=== PATIENT | female | born 1985 | race Hispanic/Latino ===

== ENCOUNTER 2021-04-30 14:31 | Emergency (ER) | payer SELFPAY ==
--- NOTE | ~2021-04-30 | XR_ITS ---
XR foot RT min 3V DATE: 04/30/2021 15:30 INDICATION: Generalized foot pain for 3 weeks TECHNIQUE: 4 views COMPARISON: None FINDINGS: Os tibiale externum, normal variant. Mild osteoarthritis at the first metatarsophalangeal joint. No fracture, dislocation, periosteal reaction or bone destruction. Slight plantar calcaneal enthesopa thy. 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
--- NOTE | ~2021-04-30 | XR_ITS ---
XR ankle RT min 3V DATE: 04/30/2021 15:30 INDICATION: Ankle and foot pain for 3 weeks TECHNIQUE: 4 views COMPARISON: None FINDINGS: No fracture or dislocation of the ankle or disruption of the ankle mortise. No periosteal r eaction or bone destruction. Os tibiale externum, normal variant. IMPRESSION: No significant abnormality Reviewed, dictated and finalized at location A. IMPRESSION: No significant abnormality
[2021-04-30 14:50] VITALS: BP 144/71; PULSE 68; RESP 16; TEMP 36.4; O2SAT 98
[2021-04-30 15:20] VITALS: BP 144/71; PULSE 68; RESP 18; TEMP 36.7; O2SAT 98
--- NOTE | 2021-04-30 16:07 | ED.GENADULT ---
HPI - General Adult General Chief complaint: Extremity Injury, Lower Stated complaint: pain Time Seen by Provider: 04/30/21 15:22 Source: patient and RN notes reviewed Mode of arrival: ambulatory Limitations: language barrier History of Present Illness HPI narrative: Patient is a 35-year-old female who presents with right ankle injury patient rolled the ankle while walking patient on arrival notes right ankle pain only no other injuries or deformities Related Data Home Medications Medication Instructions Recorded Confirmed levothyroxine 04/30/21 Allergies Allergy/AdvReac Type Severity Reaction Status Date / Time No Known Allergies Allergy Unknown Verified 04/30/21 15:01 Review of Systems Review of Systems: All systems reviewed & are unremarkable except as noted in HPI and below PMFSH Past Medical History Medical History (Updated 04/30/21 @ 16:15 by Travis López PA-C) Hypothyroidism Social History Social History Smoking status: Never smoker Exam Narrative: Exam Narrative: GENERAL: Well-appearing, well-nourished, and in no acute distress. HEAD: Normocephalic, atraumatic. EYES: PERRLA and EOMI. ENT: Nares clear, no rhinorrhea or epistaxis. Mucous membranes moist. EXTREMITIES: Tenderness of the right ankle with no deformities noted SKIN: Warm, dry, no rash. NEURO: No focal deficits. Alert and oriented x3. Cranial nerves II through XII grossly intact. Neurovascularly intact PSYCH: Normal mood and affect. Course Course Emergency Course: Patient in the room no distress evaluated felt appropriate for outpatient reevaluation made aware of case findings Vital Signs Vital signs: Vital Signs Temperature 97.5 F L 04/30/21 14:50 Pulse Rate 68 04/30/21 14:50 Respiratory Rate 16 04/30/21 14:50 Blood Pressure 144/71 H 04/30/21 14:50 Pulse Oximetry 98 04/30/21 14:50 Temperature 98.0 F 04/30/21 15:20 Pulse Rate 68 04/30/21 15:20 Respiratory Rate 18 04/30/21 15:20 Blood Pressure 144/71 H 04/30/21 15:20 Pulse Oximetry 98 04/30/21 15:20 Medical Decision Making MDM Narrative Medical decision making narrative: Patients injury or pain is consistent with musculoskeletal etiology. No signs of neurological or vascular compromise on exam. Compartments and tisues are soft without signs of compartment syndrome. Pain is felt appropriate for further evaluation on an outpatient basis. 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 No weight on the affected leg until able to bear weight without pain. Ice and elevate extremity. Pain medication as needed and directed. Follow up with your doctor for further care in the next 7 days. Prescriptions: No Action levothyroxine RF: 0 Follow-up/Referrals: PHYSICIAN,SLEEPING BAG FILLER [Primary Care Provider] - Padmini Cao DO [Physician] - Stand Alone Forms: Work/School Release IP
== END 2021-04-30 18:29 | disposition home or self-care (01) ==
PROVIDERS: Emergency Provider Emergency Medicine
DX: S93.401A Sprain of unspecified ligament of right ankle, initial encounter (principal); X50.0XXA Overexertion from strenuous movement or load, initial encounter; E03.9 Hypothyroidism, unspecified
CPT/HCPCS: 73610; 73630; 99283

== ENCOUNTER 2021-07-16 21:04 | Emergency (ER) | payer SELFPAY ==
[2021-07-16 21:25] VITALS: BP 140/79; PULSE 84; RESP 18; TEMP 36.4; O2SAT 99
[2021-07-16 22:34] LABS: Basophils Percent Auto 0.4 % (0.2-1.2); Eosinophils Absolute Auto 0.1 K/mm3 (0-0.3); Eosinophils Percent Auto 1.3 % (0-4.4); Hematocrit 41.6 % (37.0-47.0); Hemoglobin 14.1 g/dL (12.0-15.0); Immature Granulocyte Absolute 0.02 K/mm3 (0.00-0.031); Immature Granulocyte Percent A 0.3 % (0-0.5); Lymphocytes Absolute Auto 1.79 K/mm3 (0.9-3.2); Lymphocytes Percent Auto 23.8 % (18.3-44.2); Mean Corpuscular HGB Conc 33.9 g/dl (32-36); Mean Corpuscular Hemoglobin 29.4 pg (26-34); Mean Corpuscular Volume 86.7 fl (80-100); Monocytes Absolute Auto 0.5 K/mm3 (0.1-0.6); Monocytes Percent Auto 6.1 % (2.6-8.5); Neutrophils Absolute Auto 5.1 K/mm3 (1.3-6.7); Neutrophils Percent Auto 68.1 % (45.5-73.1); Platelet Count Result 258 k/mm3 (150-375); Red Cell Distribution Width 13.1 % (11.5-14.5); White Blood Count 7.5 K/mm3 (4.5-10.0)
[2021-07-16 22:42] LABS: Alanine Aminotransferase 28 U/L (4-35); Albumin Level 4.7 g/dL (3.5-5.1); Alkaline Phosphatase 60 U/L (38-126); Anion Gap 9 mmol/L (8-16); Aspartate Amino Transferase 23 U/L (14-36); Bilirubin,Total 0.5 mg/dL (0.2-1.3); Blood Urea Nitrogen 8 mg/dL (7-17); Calcium 9.6 mg/dL (8.4-10.2); Carbon Dioxide 27 mmol/L (22-30); Chloride 104 mmol/L (98-107); Estimated CRCL calculation 162 ml/min; Estimated Glomerular Filt Rate > 60; Glucose 106 mg/dL (65-110); Lipase 95 U/L (23-300); Potassium 3.6 mmol/L (3.4-5.0); Sodium 140 mmol/L (137-145)
--- NOTE | 2021-07-16 23:40 | ED.NAVMDI ---
HPI - Nausea/Vomiting/Diarrhea General Chief complaint: Nausea/Vomiting/Diarrhea Stated complaint: nausea, high blood pressure Time Seen by Provider: 07/16/21 23:14 Source: patient and explosive ordnance technician History of Present Illness HPI Narrative: Patient presents with nausea and vomiting for the past few days and diarrhea over the past 24 hours. She reports she does not have abdominal pain but feels like her abdomen is inflamed. She denies fever she denies known sick contacts denies any recent antibiotics denies any recent camping. She reports she went to the pharmacy noted that her blood pressure was high and the pharmacist referred her to the ER for evaluation. She is also reporting generalized fatigue and feels like her mouth is dry Related Data Home Medications Medication Instructions Recorded Confirmed levothyroxine 04/30/21 Allergies Allergy/AdvReac Type Severity Reaction Status Date / Time No Known Allergies Allergy Unknown Verified 07/17/21 00:03 Review of Systems Review of Systems: CONSTITUTIONAL: Denies fever, chills, or sweats. EYES: Denies visual changes, redness, or discharge. ENT: Denies rhinorrhea, congestion, sore throat, or otalgia. CARDIOVASCULAR: Denies chest pain, palpitations, or edema. RESPIRATORY: Denies cough or dyspnea. GASTROINTESTINAL: Patient reports nausea vomiting and diarrhea GENITOURINARY: Denies dysuria or hematuria. SKIN: Denies rash or itching. MUSCULOSKELETAL: Denies back pain, joint pain, or myalgia. NEUROLOGIC: Denies headache, numbness, dizziness, or focal weakness. PSYCHIATRIC: Denies anxiety or depression. PMFSH Past Medical History Medical History Hypothyroidism Social History Social History Smoking status: Never smoker Exam Narrative: GENERAL: Well-appearing, well-nourished, and in no acute distress. HEAD: Normocephalic, atraumatic. EYES: PERRLA and EOMI. ENT: Nares clear, no rhinorrhea or epistaxis. Mucous membranes moist. NECK: Supple. No masses. No JVD ABDOMEN: Minimal pain with deep palpation in the upper abdomen soft, nondistended EXTREMITIES: Normal range of motion. No edema. SKIN: Warm, dry, no rash. NEURO: No focal deficits. Alert and oriented x3. PSYCH: Normal mood and affect. Course Reevaluation(s) Reevaluation #1: Patient reports feeling much improved patient comfortable with outpatient plan. Date: 07/17/21 Time: 00:34 Vital Signs Vital signs: Vital Signs Temperature 36.4 C L 07/16/21 21:25 Pulse Rate 84 07/16/21 21:25 Respiratory Rate 18 07/16/21 21:25 Blood Pressure 140/79 07/16/21 21:25 Pulse Oximetry 99 07/16/21 21:25 Temperature 36.4 C L 07/16/21 21:25 Pulse Rate 67 07/17/21 01:09 Respiratory Rate 18 07/17/21 01:09 Blood Pressure 116/64 07/17/21 01:09 Pulse Oximetry 98 07/17/21 01:09 MDM - Nausea/Vomiting/Diarrhea MDM Narrative Medical decision making narrative: H&P as above, vss, pt looks clinically well, exam with nonacute abdomen, labs clinically unremarkable, additional labs/img considered, symptomatic relief available as needed, on reevaluation pt continues to looks clinically well. Suspect viral process, dns severe sepsis, severe dehydration, perforation, bowel obstruction, pancreatitis, appendicitis, cholecystitis. plan to tx/monitor as op w/ pcm f/u findings/plan discussed with pt, pt agree/comfortable with plan, return precautions given Lab Data Result diagrams: 07/16/21 22:24 07/16/21 22:24 Labs: Lab Results 07/16/21 07/16/21 07/17/21 Range/Units 22:24 22:24 00:02 WBC 7.5 (4.5-10.0) K/mm3 RBC 4.80 (4.2-5.4) M/mm3 Hgb 14.1 (12.0-15.0) g/dL Hct 41.6 (37.0-47.0) % MCV 86.7 (80-100) fl MCH 29.4 (26-34) pg MCHC 33.9 (32-36) g/dl RDW 13.1 (11.5-14.5) % Plt Count 258 (150-375) k/mm3 MPV 10.0 (7.4-10.4) f
[2021-07-16] MEDS: SODIUM CHLORIDE 0.9% IV 1,000 ML 999 ML IV CONT (23:50)
[2021-07-16] MEDS: ONDANSETRON INJ 4 MG/2 ML VIAL IV PUSH (23:51)
[2021-07-17 00:04] VITALS: BP 115/59; PULSE 66; RESP 16; O2SAT 97
[2021-07-17 00:27] LABS: Add Urine Microscopic? YES; Appearance Urine Clear (Clear); Bacteria Urine Trace /hpf; Bilirubin Urine Negative (Negative); Blood Urine 1+ (Negative); Color Urine Yellow (Yellow); Glucose Urine UA Negative (Negative); Ketones Urine Negative (Negative); Leukocyte Esterase Ur Negative LEU/UL (Negative); Mucus Urine Moderate /lpf; Nitrate Urine Negative (Negative); Protein Urine 1+ mg/dL (Negative); Specific Grav Ur 1.028 (1.001-1.035); Squamous Epithelial Cell Urine Moderate /hpf (Few); Urobilinogen Urine Negative mg/dL (<2.0)
[2021-07-17 01:09] VITALS: BP 116/64; PULSE 67; RESP 18; O2SAT 98
== END 2021-07-17 01:08 | disposition home or self-care (01) ==
PROVIDERS: Emergency Medicine; Emergency Provider Emergency Medicine
DX: R11.2 Nausea with vomiting, unspecified (principal); R19.7 Diarrhea, unspecified; E03.9 Hypothyroidism, unspecified
CPT/HCPCS: 36415; 80053; 81001; 81025; 83690; 85025; 96361; 96374; 99284; J2405; J7030

== ENCOUNTER 2022-11-10 17:00 | Emergency (ER) | payer SELFPAY ==
--- NOTE | ~2022-11-10 | US_ITS ---
EXAMINATION: US soft tissue chest DATE: 11/10/2022 20:07 INDICATION: swelling and tenderness to breast . TECHNIQUE: Grayscale and Doppler ultrasound images of the were obtained. COMPARISON: None. FINDINGS: The region of interest in the anterior chest to the left of midline, partially involving th e medial left breast, was sonographically interrogated revealing a lobular heterogeneous subdermal co llection measuring 1.4 x 0.7 x 4.2 cm, with increased through transmission and no internal vascularit y (apparent color Doppler flow internally in some images was confirmed with the flat bed knitter to be art ifact and not reproducible or apparent during the live exam). Suggestion of increased surrounding vas cular flow. No definite organized surrounding wall detected at this time. IMPRESSION: Subdermal heterogeneous and circumscribed fluid collection, may represent a phlegmon, developing absc ess, or infected/inflamed subdermal cyst. Reviewed, dictated and finalized at location K. AND CENTER ANALYST IMPRESSION: Subdermal heterogeneous and circumscribed fluid collection, may represent a phl egmon, developing abscess, or infected/inflamed subdermal cyst.
[2022-11-10 17:23] VITALS: BP 144/77; PULSE 72; RESP 16; TEMP 36.4; O2SAT 100
[2022-11-10 19:30] LABS: Basophils Percent Auto 0.3 % (0.2-1.2); Eosinophils Absolute Auto 0.2 K/mm3 (0-0.3); Eosinophils Percent Auto 3.1 % (0-4.4); Hematocrit 41.1 % (37.0-47.0); Hemoglobin 14.1 g/dL (12.0-15.0); Immature Granulocyte Absolute 0.03 K/mm3 (0.00-0.031); Immature Granulocyte Percent A 0.5 % (0-0.5); Lymphocytes Absolute Auto 1.86 K/mm3 (0.9-3.2); Lymphocytes Percent Auto 29.2 % (18.3-44.2); Mean Corpuscular HGB Conc 34.3 g/dl (32-36); Mean Corpuscular Hemoglobin 30.4 pg (26-34); Mean Corpuscular Volume 88.6 fl (80-100); Mean Platelet Volume 9.7 fl (7.4-10.4); Monocytes Absolute Auto 0.4 K/mm3 (0.1-0.6); Monocytes Percent Auto 6.3 % (2.6-8.5); Neutrophils Absolute Auto 3.9 K/mm3 (1.3-6.7); Neutrophils Percent Auto 60.6 % (45.5-73.1); Platelet Count Result 251 k/mm3 (150-375); Red Blood Count 4.64 M/mm3 (4.2-5.4); Red Cell Distribution Width 12.6 % (11.5-14.5); White Blood Count 6.4 K/mm3 (4.5-10.0)
[2022-11-10 19:40] LABS: Alanine Aminotransferase 36 U/L (6-35); Albumin Level 4.2 g/dL (3.5-5.1); Alkaline Phosphatase 65 U/L (38-126); Anion Gap 7 mmol/L (8-16); Aspartate Amino Transferase 24 U/L (14-36); Bilirubin,Total 0.4 mg/dL (0.2-1.3); Blood Urea Nitrogen 12 mg/dL (7-17); Calcium 8.9 mg/dL (8.4-10.2); Carbon Dioxide 27 mmol/L (22-30); Chloride 106 mmol/L (98-107); Estimated CRCL calculation 128 ml/min; Estimated Glomerular Filt Rate > 60; Glucose 103 mg/dL (65-110); Potassium 3.8 mmol/L (3.4-5.0); Sodium 140 mmol/L (137-145)
--- NOTE | 2022-11-10 20:52 | ED.SKABFB ---
HPI - Skin/Abscess/Foreign Bdy General Chief complaint: Skin/Abscess/Foreign Body Stated complaint: bump under breast Time Seen by Provider: 11/10/22 20:37 Source: patient Mode of arrival: ambulatory Limitations: language barrier ([place] speaking) History of Present Illness HPI narrative: This a 37 year old female who presents for evaluation of left breast painful lump. Her family is at beside to assist with translation. Patient had mammogram 2 days ago so she states she knows she does not have cancer. She states she had mammogram due to having painful lumps in the past. Last night, patient developed tenderness to left medial breast . It has become more painful throughout the night. She denies nausea, vomiting, fever or chills. She denies breast feeding. She denies nipple discharge. Related Data Home Medications Medication Instructions Recorded Confirmed levothyroxine 04/30/21 Allergies Allergy/AdvReac Type Severity Reaction Status Date / Time No Known Allergies Allergy Unknown Verified 07/17/21 00:03 [facility] Past Medical History Medical History Hypothyroidism Social History Social History Smoking status: Never smoker Course Reevaluation(s) Reevaluation #1: I discussed with patient option of performing I and D versus treatment with antibiotics and warm compresses. After discussing risk and benefits patient has decided to treat without I and d at this time. I did stress that she will need to follow up surgery tomorrow. Date: 11/10/22 Time: 21:27 Consultations Consultation #1: I spoke with DR. Mancera of general surgery. He states patient can follow up in clinic. Date: 11/10/22 Time: 21:26 Vital Signs Vital signs: Vital Signs Temperature 97.6 F 11/10/22 17:23 Pulse Rate 72 11/10/22 17:23 Respiratory Rate 16 11/10/22 17:23 Blood Pressure 144/77 H 11/10/22 17:23 Pulse Oximetry 100 11/10/22 17:23 Temperature 97.6 F 11/10/22 17:23 Pulse Rate 72 11/10/22 17:23 Respiratory Rate 16 11/10/22 17:23 Blood Pressure 144/77 H 11/10/22 17:23 Pulse Oximetry 100 11/10/22 17:23 MDM - Skin/Abscess/Foreign Bdy Differential Diagnosis Differential diagnosis: Likely abscess of skin or subcutaneous tissue, cellulitis and other (cyst, mass) Lab Data Attestation: I reviewed the patient's lab results. 11/10/22 19:21 11/10/22 19:21 Labs: Lab Results 11/10/22 11/10/22 Range/Units 19:21 19:21 WBC 6.4 (4.5-10.0) K/mm3 RBC 4.64 (4.2-5.4) M/mm3 Hgb 14.1 (12.0-15.0) g/dL Hct 41.1 (37.0-47.0) % MCV 88.6 (80-100) fl MCH 30.4 (26-34) pg MCHC 34.3 (32-36) g/dl RDW 12.6 (11.5-14.5) % Plt Count 251 (150-375) k/mm3 MPV 9.7 (7.4-10.4) fl Immature Gran % (Auto) 0.5 (0-0.5) % Neut % (Auto) 60.6 (45.5-73.1) % Lymph % (Auto) 29.2 (18.3-44.2) % [place] % (Auto) 6.3 (2.6-8.5) % Eos % (Auto) 3.1 (0-4.4) % Baso % (Auto) 0.3 (0.2-1.2) % Lymph # (Auto) 1.86 (0.9-3.2) K/mm3 [place] # (Auto) 0.4 (0.1-0.6) K/mm3 Eos # (Auto) 0.2 (0-0.3) K/mm3 Baso # (Auto) 0.0 (0.0-0.1) K/mm3 Abs Immat Gran (auto) 0.03 (0.00-0.031) K/mm3 Absolute Neuts (auto) 3.9 (1.3-6.7) K/mm3 Absolute Nucleated RBC 0.0 (0.0-0.012) K/mm3 Nucleated RBC % 0.0 (0.0-0.2) % Sodium 140 (137-145) mmol/L Potassium 3.8 (3.4-5.0) mmol/L Chloride 106 (98-107) mmol/L Carbon Dioxide 27 (22-30) mmol/L Anion Gap 7 L (8-16) mmol/L BUN 12 (7-17) mg/dL Creatinine 0.70 (0.7-1.0) mg/dL Estim Creat Clear Calc 128 ml/min Estimated GFR > 60 (59 - ) Glucose 103 (65-110) mg/dL Calcium 8.9 (8.4-10.2) mg/dL Total Bilirubin 0.4 (0.2-1.3) mg/dL AST 24 (14-36) U/L ALT 36 H (6-35) U/L Alkaline Phosphatase 65 (38-126) U/L Total Protein 8.0 (6.3-8.
[2022-11-10] MEDS: SULFAMETHOXAZOLE/TRIMETHOPRIM 800/160 MG DS TABLET 1 TAB PO (21:58)
[2022-11-10] MEDS: CEPHALEXIN 500 MG CAPSULE PO (21:58)
== END 2022-11-10 22:08 | disposition home or self-care (01) ==
PROVIDERS: Physician Assistant; Emergency Provider General Practice
DX: N61.1 Abscess of the breast and nipple (principal); E03.9 Hypothyroidism, unspecified
CPT/HCPCS: 36415; 76604; 80053; 85025; 99284; A9270